=== PATIENT | male | born 1980 | race African-American/Black ===

== ENCOUNTER 2017-05-16 22:11 | Emergency (ER) | payer OTHER ==
--- NOTE | 2017-05-16 22:20 | ED GENERAL ADULT ---
History of Present Illness General Chief Complaint: Psychiatric Related Complaint Stated Complaint: BIBA PSYCH EVAL Source: patient, EMS, police Exam Limitations: intoxication Vital Signs & Intake/Output Vital Signs & Intake/Output Vital Signs Date Time Temp Pulse Resp B/P B/P Pulse O2 O2 Flow FiO2 Mean Ox Delivery Rate 05/17 0014 97.9 116 18 154/94 96 Room Air Allergies Coded Allergies: No Known Allergies (05/16/17) Reconcile Medications No Known Home Medications Triage Nurses Notes Reviewed? yes HPI: Patient was found acting erratically on the street. Patient admits to taking PCP. Patient denies any homicidal or suicidal ideations. Patient is extremely agitated upon arrival. Patient was given 2 mg of IV Ativan by EMS prior to arrival in the emergency department. Patient required restraints upon arrival. Past History Travel History Traveled to [facility] past 21 day No Medical History Any Pertinent Medical History? none Neurological: NONE EENT: NONE Cardiovascular: NONE Respiratory: NONE Gastrointestinal: NONE Hepatic: NONE Renal: NONE Musculoskeletal: NONE Psychiatric: NONE Endocrine: NONE Blood Disorders: NONE Cancer(s): NONE Surgical History Surgical History: non-contributory Psychosocial History What is your primary language [place] Tobacco Use: Current Daily Use Daily Tobacco Use Amount/Type: => 5 Cigarettes daily ETOH Use: occasional use Illicit Drug Use: PCP Family History Hx Contributory? No Review of Systems Review of Systems Constitutional: Reports: see HPI. Physical Exam Physical Exam General Appearance: well developed/nourished, alert, awake, anxious, moderate distress Head: atraumatic Eyes: Bilateral: PERRL, EOMI. Ears, Nose, Throat: normal pharynx, normal ENT inspection Neck: normal inspection, supple, full range of motion Respiratory: normal breath sounds, chest non-tender, no respiratory distress, lungs clear Cardiovascular: regular rate/rhythm, normal peripheral pulses Gastrointestinal: normal bowel sounds, soft, non-tender Back: normal inspection, normal range of motion Extremities: normal inspection, normal capillary refill, normal range of motion, no edema Neurologic/Psych: no motor/sensory deficits, awake, alert, VERY AGITATED Core Measures ACS in differential dx? No CVA/TIA Diagnosis: No Sepsis Present: No Sepsis Focused Exam Completed? No Progress Differential Diagnoses I considered the following diagnoses in my evaluation of the patient: [DRUG OVERDOSE, ELCTROLYTE ABNORMALITY] Plan of Care: Orders Procedure Date/time Status Restraint- Discontinue 05/17 44 Active URINE DRUGS OF ABUSE 05/16 2218 Active ETHANOL 05/16 2218 Active COMPREHENSIVE METABOLIC PANEL 05/16 2218 Active CBC WITHOUT DIFFERENTIAL 05/16 2218 Active Patient Safety Monitor 05/16 2214 Active Restraint- Behavioral (Order) 05/16 2214 Active Initial ED EKG: none Departure Departure Disposition: HOME OR SELF CARE Condition: Stable Clinical Impression Primary Impression: PCP (phencyclidine) abuse Referrals: Patient Has No Primary Care Dr Additional Instructions: RETURN IF SYMPTOMS WORSEN OR FOR ANY CONCERNS Departure Forms: Customer Survey General Discharge Information Prescriptions: Current Visit Scripts No Known Home Medications Critical Care Note Critical Care Note Critical Care Time: non-applicable
[2017-05-17 00:14] VITALS: BP 154/94
== END 2017-05-17 01:33 ==
LOC: ERH 22:11
DX: F16.10 Hallucinogen abuse, uncomplicated (principal)
CPT/HCPCS: 80307; G0480